=== PATIENT | male | born 2000 | race Two or more races ===

== ENCOUNTER 2022-08-23 14:03 | Emergency (ER) | payer OTHER, SELFPAY ==
[2022-08-23 14:35] VITALS: BP 170/81; PULSE 87; RESP 18; TEMP 37.1; O2SAT 100
--- NOTE | 2022-08-23 15:56 | ED.SKABFB ---
HPI - Skin/Abscess/Foreign Bdy General Chief complaint: Skin/Abscess/Foreign Body <AUGUSTIN Stroud Last Filed: 08/23/22 18:22> Stated complaint: pain to left armpit <AUGUSTIN Stroud Last Filed: 08/23/22 18:22> Time Seen by Provider: 08/23/22 15:38 <AUGUSTIN Stroud Last Filed: 08/23/22 18:22> History of Present Illness HPI narrative: Patient is a 22-year-old male here for evaluation of pain and swelling to his left axilla over the past 4 days. No new soaps, detergents, medications or deodorants. Patient stated that he thought it was an allergic reaction therefore took some Benadryl without relief. No difficulty breathing. patient states he does have a history of a staph infection on his foot that was drained when he was a teenager but never in his axillae or groin. He denies any fevers, chills, nausea, vomiting. <AUGUSTIN Stroud Last Filed: 08/23/22 18:22> Related Data Allergies/Adverse reactions: Allergies Allergy/AdvReac Type Severity Reaction Status Date / Time egg Allergy Mild Rash Verified 08/23/22 14:40 fish oil Allergy Unknown VAGUE Verified 02/23/21 10:17 RESPONSE FROM MOTHER, CAN EAT SHRIMP FISH PRODUCTS Allergy Mild Rash Uncoded 08/23/22 14:40 Poppy Seed Allergy Mild Rash Uncoded 08/23/22 14:40 Pork Allergy Mild Rash Uncoded 08/23/22 14:40 [place] Allergy Mild Rash Uncoded 08/23/22 14:40 Sesame Seed Allergy Mild Rash Uncoded 08/23/22 14:40 Wheat Allergy Mild Rash Uncoded 08/23/22 14:40 <AUGUSTIN Stroud Last Filed: 08/23/22 18:22> Review of Systems Review of Systems: Gen.: Denies fevers or chills Eyes: Denies eye pain or visual change ENT: Denies congestion Respiratory: Denies shortness of breath or cough CV: Denies chest pain or palpitations GI: Denies abdominal pain nausea, emesis or diarrhea denies burning, urgency, frequency or hematuria Musculoskeletal: Denies back pain or muscle pain Neuro: Denies numbness, tingling, weakness or focal weakness Skin: Reports pain and swelling to left axilla. Except as documented, all other systems reviewed and negative <Radha Parra PA-C - Last Filed: 08/23/22 18:22> Exam Narrative: APPEARANCE: Well appearing, no pain in distress, well-nourished. Head: Normocephalic and atraumatic. EYES: PERRLA/EOMI, conjunctivae clear NOSE: No nasal drainage EARS: External ear normal in appearance THROAT: Oropharynx is clear. Mucous membranes are moist. NECK: Supple. No adenopathy, no masses. RESPIRATORY: Airway patent, respirations nonlabored. Clear to auscultation bilaterally, no rales, rhonchi, wheezing. CARDIOVASCULAR: Regular rate and rhythm without murmurs, rubs, or gallops. ABDOMINAL: Normoactive bowel sounds. Soft, nontender, nondistended. No rebound tenderness or guarding. MUSCULOSKELETAL: Extremities are warm and well-perfused. Moves all extremities well. No edema. NEURO: Normal speech. No focal neurologic deficits. SKIN: Patient has an area of induration and fluctuance to left axilla measuring about 2 x 2 cm, tender to palpation, not actively draining. PSYCHIATRIC: Normal affect/mood.. <Radha Parra PA-C - Last Filed: 08/23/22 18:22> Course RN TRANSITION/PA Physician Supervision For this patient encounter, I reviewed the RN TRANSITION or PA documentation, treatment plan, and medical decision making <Milo Jarvis MD - Last Filed: 08/23/22 21:03> Vital Signs Vital signs: Vital Signs Temperature 98.7 F 08/23/22 14:35 Pulse Rate 87 08/23/22 14:35 Respiratory Rate 18 08/23/22 14:35 Blood Pressure 170/81 H 08/23/22 14:35 Pulse Oximetry 100 08/23/22 14:35 Temperature 98.7 F 08/23/22 14:35 Pulse Rate 87 08/23/22 14:35 Respiratory Rate 18 08/23/22 14:35 Blood Pressure 170/81 H 08/23/22 14:35 Pulse Oximetry 100 08/23/22 14:35 <Radha Parra PA-C - Last Filed: 08/23/22 18:22> Vital Signs
[2022-08-23] MEDS: ACETAMINOPHEN 325 MG TABLET 650 MG PO (16:08)
[2022-08-23] MEDS: LIDOCAINE/PRILOCAINE CREAM 2.5-2.5% TUBE 1 EACH TOPICAL (16:08)
[2022-08-23] MEDS: IBUPROFEN 600 MG TABLET PO (16:08)
== END 2022-08-23 17:28 | disposition home or self-care (01) ==
PROVIDERS: Emergency Provider Emergency Medicine
DX: L02.412 Cutaneous abscess of left axilla (principal)
CPT/HCPCS: 10060; 99283; A9270

== ENCOUNTER 2025-05-06 17:25 | Emergency (ER) | payer OTHER, BC, SELFPAY ==
--- NOTE | ~2025-05-06 | XR_ITS ---
XR chest 2V Ordering provider: Milo Jarvis MD History: 25 years Male with . cough . Comparison: May 15, 2019 FINDINGS: MEDIASTINUM: The cardiac silhouette is not enlarged. LUNGS: No infiltrates, effusions or pneumothorax. OTHER: No free air under the diaphragm. IMPRESSION: No acute cardiopulmonary pathology. Reviewed, dictated and finalized at location A.
[2025-05-06 17:26] VITALS: BP 174/95; PULSE 81; RESP 16; TEMP 36.6; O2SAT 99
--- OUTSIDE RECORDS SUMMARY | 2025-05-06 17:27 | XMS_ITS | Clinical Summary ---
Author Organization [facility] [address] [place] [address] [place] [id number] Care Team Providers Care Patient Relations Manager Name Role Phone Unknown, Notinfile Primary Care Provider Unavail able Bear Hutton MD Unavailable [phone] Allergies Active Allergy Reactions Criticality Noted Date Comments Fish Containing Products Other (See comments) Low 0 12/14/2022 Reaction: Pork Other (See comments) Low 12/14/2022 Reaction: Venom-Honey Bee Other (See comments),Urticaria Medium 03/28/2016 Reaction: Medications ibuprofen (ADVIL,MOTRIN) 600 mg tabletIndicatio ns:Pain Take 1 tablet (600 mg total) by mouth every 6 (six) hours as needed for pain 20 tablet 2 Active Additional Information Patient not taking.Reported on 12/14/2022 cyclobenzaprine (FLEXERIL) 5 mg tabletIndicatio ns:Muscle Spasm Take 1 tablet (5 mg total) by mouth 3 (three) times a day as needed for muscle spasms 21 tablet 2 Active Additional Information Patient not taking.Reported on 12/14/2022 Active Problems No known active problems Immunizations Immunization Administration Dates Next Due DTaP 06/04/2000,1999 Hep B, Adolescent or Pediatric 1999 Hib (HbOC) 06/04/2000,1999 IPV 06/04/2000 Pneumococcal Conjugate 7-Valent 10/30/2000,09/05 Varicella 03/05/2000 Social History Tobacco Use Types Packs/Day Years Used Date Smoking Tobacco: Never Smokeless Tobacco: Never Tobacco Cessation:Counseling Given: Not Answered Alcohol Use Standard Drinks/Week Comments Not Currently 0 (1 standard drink = 0.6 oz pur e alcohol) Personal Safety Answer Date Recorded Have you ever been in or are you currently in a harmful physical or emotional relationship or is someone making you feel afraid or unsafe? 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 Gender Identity Not on file Sexual Orientation Not on file Obstetrics History Last Filed Vital Signs Vital Sign Reading Time Taken Comments Blood Pressure 132/68 01/14/2024 12:13 PM CDT Pulse 85 01/14/2024 12:13 PM CDT Temperature 37 C (98.6 F) 01/14/2024 9:55 AM CDT Respiratory Rate 18 01/14/2024 12:13 PM CDT Oxygen Saturation 100% 01/14/2024 12:13 PM CDT Inhaled Oxygen Concentration - - Weight 127 kg (280 lb) 01/14/2024 9:55 AM CDT Height 188 cm (6' 2) 01/14/2024 9:55 AM CDT Body Mass Index 35.95 01/14/2024 9:55 AM CDT Plan of Treatment Health Maintenance Due Date Last Done Comments Depression Screening 1999 Hepatitis C Screening 1999 Regular Well Visit/Exam 18-64 2017 Covid-19 Vaccine (2023-2 5 season) 2024 07/19/2021, 06/21/2021 Influenza Vaccine (Season Ended) 2025 09/15/2020, 07/31/2016, 09/01/2013, Additional history exists DTaP/Tdap/Td Vaccine (8 - Td or Tdap) 05/29/2026 05/29/2016, 06/15/2009, 06/14/2004, Additional history exists Hepatitis B Screening Completed 1999 , 1999, 1999 Pneumococcal vaccine <65 Completed 10/30/2000, 05/2000 Varicella Vaccines Completed 06/15/2009, 03/05/2000 HPV Vaccines Completed 09/28/2016, 10/2015, 03/28/2016, Additional history exists Insurance [employer] [facility] [place] Care Teams Patient Relations Manager Relationship Specialty Start Date End Date Unknown, Notinfile PCP - General 01/12/22 Bear Hutton MD [address] [place] [address] Family Medicine 01/12/22
--- OUTSIDE RECORDS SUMMARY | 2025-05-06 17:27 | XMS_ITS | Clinical Summary ---
Author Organization [facility] [employer] Address [address] [place] [address] Care Team Providers Care Technologist Development Name Role Phone Tong Dykes DO Primary Care Provider Source Comments [facility] [employer],non-owned Affiliates and Associated Physician Practices is amultiple site organization consisting of ambulatory clinics and hospital sitesin [place], [place], [place] and [place]. This disclosure is being madepursuant to the Care Everywhere program and may not contain all information available regarding this patient. Last updated 18.[facility] [employer] Allergies Active Allergy Reactions Criticality Noted Date Comments Bee Urticaria Low 03/28/2016 Fish Allergy Urticaria Low 03/28/2016 Pork Allergy Urticaria Low 03/28/2016 Medications * Be aware that medications may not be up to date on this document. Alwaysverify current medications with the patient. 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 Received IVIG, asa and serial echos with cardiology at [facility]. Release at 4 years of age from cards. Atopic dermatitis 08/19/2012 Immunizations Immunization Administration Dates Next Due INFLUENZA VACCINE, TRIV. (AF LURIA, FLUZONE TRIVALENT; 6MO+) (IIV3) 07/12/2010 DTaP VACCINE IM (6wk-6yrs) 06/14/2004,,1999,07/07,1999 HEP A PEDS 2 DOSE 07/12/2010,06/15/2009 HEP B VACCINE, PED/ADOL 1999,1999, HIB BOOSTER 06/04/2000, 9,1999,05/16 Human Papilloma Virus Nineva lent Vaccine 09/28/2016 Human Papilloma Virus Piyush valent Vaccine 05/29/2016,03/28/2016 INFLUENZA VACCINE 08/03/2009 INFLUENZA VACCINE, QUADR. 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 Gender Identity Not on file Sexual Orientation Not on file Last Filed Vital Signs Vital Sign Reading Time Taken Comments Blood Pressure 162/78 03/30/2016 11:10 AM CDT manual reading; right upper arm Pulse 88 08/19/2012 4:24 PM CDT Temperature 36.8 C (98.2 F) 06/19/2017 2:22 PM CDT Respiratory Rate 18 07/12/2010 10:4 1 AM CDT Oxygen Saturation - - Inhaled Oxygen Concentration - - Weight 125.6 kg (277 lb) 06/19/2017 2:2 2 PM CDT Height 182.9 cm (6') 02/16/2017 2:43 PM CDT Body Mass Index - - Plan of Treatment Health Maintenance Due Date Last Done Comments HIV SCREENING 2014 HEPATITIS C SCREENING 02/24/2017 COVID-19 VACCINE ( season) 2024 DEPRESSION SCREENING 10/29/2024 INFLUENZA VACCINE (#1) 2025 6, 07/12/2010, 08/03/2009 DTAP/TDAP/TD VACCINES (8 - Td or Tdap) 05/29/2026 05/29/2016, 06/15/2009, 06/14/2004, Additional history exists ZOSTER VACCINE (1 of 2) 2049 HEPATITIS B VACCINE Completed 1999, 1999, 1999 HIB VACCINE Completed 06/04/2000, 08/29, 1999, Additional history exists PNEUMOCOCCAL VACCINE Completed 10/30/2000, 09/05/20 MENINGOCOCCAL GROUPS A/C/Y/W VACCINE Completed 03/28/2016, 07/12/2010 HPV VACCINE Completed 09/28/2016, 08/0 10/2015, 03/28/2016 MENINGOCOCCAL (Group B) VACCINE SHARED DECISION-MAKING Aged Out No longer eligible based on patient's age to complete this topic Goals Goal Patient Goal Type Associated Problems Recent Progress Patient-Stated? Author Use safety retraint in car Lifestyle On track( 016 2:01 PM CDT) Elaine Mcqueen RN Insurance [employer] Care Teams Technologist Development Relationship Specialty Start Date End Date Tong Dykes DO PCP - General Pediatrics 03/28/16
--- OUTSIDE RECORDS SUMMARY | 2025-05-06 17:27 | XMS_ITS | Referral Summary ---
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 BL CHOICE [facility] [place] Care Teams Oracle Soa Consultant Relationship Specialty Start Date End Date Unknown, Notinfile PCP - General 01/12/22 Bear Hutton MD [address] [place] [address] Family Medicine 01/12/22
[2025-05-06 20:05] VITALS: BP 172/110; PULSE 81; RESP 16; TEMP 36.9; O2SAT 100
--- NOTE | 2025-05-06 20:08 | PC.NURSE ---
Pt. hypertensive. Denies history of htn or CP. Pt. states he is really tired so he drank 2x red bulls today and took 2x doses of mucinex all in one, which has phenylephrine in it.
--- OUTSIDE RECORDS SUMMARY | 2025-05-06 20:18 | XMS_ITS | Clinical Summary ---
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
--- OUTSIDE RECORDS SUMMARY | 2025-05-06 20:18 | XMS_ITS | Referral Summary ---
Author Organization 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
--- OUTSIDE RECORDS SUMMARY | 2025-05-06 20:18 | XMS_ITS | Clinical Summary ---
Author Organization [facility] [employer] Address [address] [place] [address] Care Team Providers Care Corrections Specialist Name Role Phone Tong Dykes DO Primary Care Provider Source Comments [facility] [employer],non-owned Affiliates and Associated Physician Practices is amultiple site organization consisting of ambulatory clinics and hospital sitesin [place], [place], [place] and [place]. This disclosure is being madepursuant to the Care Everywhere program and may not contain all information available regarding this patient. Last updated 18.[facility] [employer] Allergies Active Allergy Reactions Criticality Noted Date [...] asa and serial echos with cardiology at [facility]. 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
[2025-05-06 20:31] LABS: Strep Group A RT-PCR NOT DETECTED (Negative)
[2025-05-06 20:44] LABS: Influenza A QL RT-PCR Negative (Negative); Influenza B QL RT-PCR Negative (Negative); RSV RNA, RT-PCR Negative (Negative); SARS-CoV-2 RNA PCR Negative (Negative)
--- NOTE | 2025-05-06 21:12 | ED_ITS ---
HPI - General Adult General Chief complaint: Upper Respiratory Infection Stated complaint: COUGH, CONGESTION Time Seen by Provider: 05/06/25 19:50 History of Present Illness HPI narrative: 25-year-old male presenting to the emergency department for evaluation for cough and congestion this been going on for approximately 1 week. Patient does report loss of voice as well Related Data Allergies Allergy/AdvReac Type Severity Reaction Status Date / Time gelatin Allergy Intermediate Hives Verified 05/06/25 21:32 egg Allergy Mild Rash Verified 08/23/22 14:40 fish oil Allergy Unknown VAGUE Verified 02/23/21 10:17 RESPONSE FROM MOTHER, CAN EAT SHRIMP FISH PRODUCTS Allergy Mild Rash Uncoded 08/23/22 14:40 Poppy Seed Allergy Mild Rash Uncoded 08/23/22 14:40 Pork Allergy Mild Rash Uncoded 08/23/22 14:40 [place] Allergy Mild Rash Uncoded 08/23/22 14:40 Sesame Seed Allergy Mild Rash Uncoded 08/23/22 14:40 Wheat Allergy Mild Rash Uncoded 08/23/22 14:40 Review of Systems Review of Systems: All systems reviewed & are unremarkable except as noted in HPI and below Exam Narrative: APPEARANCE: Well appearing, no pain, no distress, well-nourished. HEAD: normocephalic, atraumatic. EYES: PERRLA/EOMI, conjunctivae clear. NOSE: Normal no drainage EARS:TMS clear with good light reflex. THROAT: Pharynx clear, no exudate. NECK: Supple. No adenopathy, no masses. RESPIRATORY: Airway patent, respirations nonlabored. Clear to auscultation bilaterally, no rales, rhonchi, wheezing. CARDIOVASCULAR: Regular rate and rhythm without murmurs rubs or gallops. ABDOMINAL: Soft, nontender, nondistended, normal bowel sounds MUSCULOSKELETAL: Moves all extremities. Strength/ROM intact, No edema, No calf tenderness. NEURO: Alert. Cranial nerves II through XII intact. Good gait. Good coordination SKIN: Warm, dry. Normal Color Course Vital Signs Vital signs: Vital Signs Temperature 98 F 05/06/25 17: Pulse Rate 81 05/06/25 17: Respiratory Rate 16 05/06/25 17: Blood Pressure 174/95 H 05/06/25 17:26 Pulse Oximetry 99 05/06/25 17:26 Oxygen Delivery Room Air 05/06/25 17:26 Temperature 98 F 05/06/25 22:00 Pulse Rate 90 05/06/25 22:00 Respiratory Rate 16 05/06/25 22:00 Blood Pressure 154/90 H 05/06/25 22:00 Pulse Oximetry 100 05/06/25 22:00 Oxygen Delivery Room Air 05/06/25 20:04 Medical Decision Making MDM Narrative Medical decision making narrative: 25-year-old male to the emergency department for evaluation for cough and congestion. Patient's x-ray showed no acute cardiopulmonary allergy. Patient was started on antibiotics for concern for a while pneumonia transition to bacterial pneumonia. Patient was updated on the results of the workup and plan for treatment. All questions concerns were addressed. Differential Diagnosis Differential Diagnosis: COVID, RSV, pneumonia, pneumothorax Vital Signs Vital Signs: Vital Signs Temperature 98 F 05/06/25 17:26 Pulse Rate 81 05/06/25 17:26 Respiratory Rate 16 05/06/25 17:26 Blood Pressure 174/95 H 05/06/25 17:26 Pulse Oximetry 99 05/06/25 17:26 Oxygen Delivery Room Air 05/06/25 17:26 Temperature 98 F 05/06/25 22:00 Pulse Rate 90 05/06/25 22:00 Respiratory Rate 16 05/06/25 22:00 Blood Pressure 154/90 H 05/06/25 22:00 Pulse Oximetry 100 05/06/25 22:00 Oxygen Delivery Room Air 05/06/25 20:04 Lab Data Labs: Lab Results 05/06/25 Range/Units 20:00 Influenza A (RT-PCR) Negative (Negative) Influenza B (RT-PCR) Negative (Negative) RSV (RT-PCR) Negative (Negative) SARS-CoV-2 RNA (RT-PCR) Negative (Negative) Group A Strep (PCR) Not detected (Negative) Discharge Plan Discharge Clinical Impression: Pneumonia Patient Disposition: Home Condition: Stable Instructions: Antibiotic Form, Pneumonia (ED) Additional Instructions: Antibiotic as directed until completed. Albuterol inhaler for shortness of breath. Tessalon Perles for cough. Have close follow-up with her primary care physician. Patient Language: Romanian Prescriptions: New azithromycin 250 mg tablet See Rx Instructions .ROUTE .COMPLEX Qty: 6 0RF Rx Instructions: For 250 mg dose pack: take 500 mg today (day 1), then 250 mg for 4 days (days 2-5) benzonatate 100 mg capsule 100 mg PO TID PRN (Reason: cough) Qty: 14 0RF albuterol sulfate 90 mcg/actuation HFA aerosol inhaler 1 puff inhalation QID Qty: 6.7 0RF amoxicillin-pot clavulanate 875-125 mg tablet 1 tablet PO Q12H 7 Days Qty: 14 0RF No Action doxycycline hyclate 100 mg capsule 100 mg PO BID 5 Days Qty: 10 0RF Follow-up/Referrals: PHYSICIAN,CONSUMER CREDIT COUNSELOR [Primary Care Provider] -
--- NOTE | 2025-05-06 21:28 | PC.NURSE ---
ED respiratory called to bedside for breathing treatment.
[2025-05-06] MEDS: AZITHROMYCIN 500 MG TABLET PO (21:30)
[2025-05-06 21:35] VITALS: PULSE 80; RESP 16
[2025-05-06] MEDS: ALBUTEROL SULFATE NEB 2.5 MG/3 ML INH 5 MG INHALATION (21:39)
--- NOTE | 2025-05-06 21:40 | PC.NURSE ---
Pt. states he has an allergy to gelatin. Allergy added to list. Dr. Jarvis notified. Pt. not given tessalon vasu.
[2025-05-06 22:00] VITALS: BP 154/90; PULSE 90; RESP 16; TEMP 36.6; O2SAT 100
== END 2025-05-06 22:02 | disposition home or self-care (01) ==
PROVIDERS: Emergency Medicine; Emergency Provider Emergency Medicine
DX: J18.9 Pneumonia, unspecified organism (principal); Z20.822 Contact with and (suspected) exposure to COVID-19
CPT/HCPCS: 71046; 87637; 87651; 94640; 99283; A9270